=== PATIENT | female | born 2000 | race Caucasian/White ===

== ENCOUNTER 2021-08-04 06:47 | Inpatient (IN) ==
[2021-08-04] MEDS ORDERED: MEPERIDINE 50 MG/1 ML VIAL IV PRN (07:31)
[2021-08-04] MEDS ORDERED: LACTATED RINGERS 500 ML IV PRN (07:31)
[2021-08-04] MEDS ORDERED: BUTORPHANOL 2 MG/ML VIAL IV PRN (07:31)
[2021-08-04 07:54] LABS: Basophils % 0.1 % (0.0-0.8); Eosinophils # 0.1 10*3/uL (0.0-0.87); Eosinophils % 0.7 % (0.00-10.9); Hematocrit 30.8 VOL% (35.7-47.0); Hemoglobin 9.7 GM/DL (12.0-16.0); Immature Granulocytes % 0.4 %; Immature Granulocytes Absolute 0.03 #; Lymphocytes # 1.9 10*3/uL (1.4-4.0); Lymphocytes % 25.5 % (21.3-54.2); Mean Corpuscular HGB Conc 31.5 GM/DL (32-36); Mean Corpuscular Volume 82.4 FL (87-102); Mean Platelet Volume 10.4 FL (9.6-12.0); Monocytes % 10.7 % (1.7-12.7); Neutrophils % 62.6 % (38.7-73.9); Platelet Count 232 T/CUMM (130-400); Red Blood Count 3.74 MC/CUMM (3.8-5.5); Red Cell Distribution Width 15.1 % (9.3-17.3); White Blood Count 7.6 T/CUMM (4-12)
[2021-08-04] MEDS ORDERED: LACTATED RINGERS 1,000 ML IV SCH ×3 (08:00→14:00)
[2021-08-04 08:26] LABS: Albumin 2.5 G/DL (3.4-5.0); Bilirubin,Total 0.4 MG/DL (0.20-1.00); Calcium 8.9 MG/DL (8.5-10.1); Osmolality,Calculated 271.7 MOS/KG (273-304); Potassium 3.4 MMOL/L (3.5-5.1); Total Protein 6.6 G/DL (6.4-8.2)
[2021-08-04] MEDS ORDERED: FAMOTIDINE 20 MG/2 ML VIAL IV ONE (13:30)
[2021-08-04] MEDS ORDERED: ePHEDrine 50 MG/ML VIAL IV PRN (13:30)
[2021-08-04] MEDS ORDERED: diphenhydrAMINE 50 MG/1 ML VIAL IV PRN ×2 (13:30)
[2021-08-04] MEDS ORDERED: NALOXONE 0.4 MG/ML VIAL IV PRN (13:30)
[2021-08-04] MEDS ORDERED: CITRIC ACID/SODIUM CITRATE 30 ML UDCUP PO ONE (13:30)
[2021-08-04] MEDS ORDERED: LACTATED RINGERS 1,000 ML IV ONE (14:00)
[2021-08-04] MEDS ORDERED: PROMETHAZINE 25 MG/1 ML VIAL IM ONE (14:00)
[2021-08-04] MEDS: fentaNYL 2 MCG/ROPIV 0.2% EPID 100 ML EPIDURAL SCH ×2 (15:10→22:15)
[2021-08-04] MEDS: OXYTOCIN/LR 20 UNIT/1,000 ML BAG IV SCH (15:15)
[2021-08-04] MEDS: ONDANSETRON 4 MG/2 ML VIAL IV PRN ×2 (15:30→20:30)
[2021-08-04 16:59] LABS: Mucus,Urine Occasional /LPF (Occasional); RBC,Urine 104 /HPF (0-4); Squamous Epithelial Cell,Urine Occasional /HPF (0-10)
[2021-08-04 17:00] LABS: Glucose,Urine (UA) Negative (Negative); Ketones,Urine 80 mg/dL (Negative); Protein,Urine Negative (Negative); Urine Appearance Clear (Clear); Urine Color Yellow (Yellow)
[2021-08-04 17:01] LABS: Bilirubin,Urine Negative (Negative); Blood, Urine Large mg/dL (Negative); Nitrite,Urine Negative (Negative)
[2021-08-04] MEDS ORDERED: miSOPROStoL 200 MCG TABLET ONE (23:04)
[2021-08-04] MEDS ORDERED: TRANEXAMIC ACID 1,000 MG/10 ML VIAL ONE (23:04)
[2021-08-04] MEDS ORDERED: CARBOPROST TROMETHAMINE 250 MCG/ML AMP IM ONE (23:05)
[2021-08-04] MEDS ORDERED: METHYLERGONOVINE 0.2 MG/1 ML AMP ONE (23:05)
[2021-08-04] MEDS ORDERED: SODIUM CHLORIDE 0.9% 0 ML IV ONE (23:05)
[2021-08-04] MEDS ORDERED: OXYTOCIN/LR 20 UNIT/1,000 ML BAG IV ONE (23:05)
[2021-08-05 00:14] LABS: Cord Venous Blood HCO3 20.3 MMOL/L; Cord Venous Blood PO2 21.2 MMHG
[2021-08-05] MEDS: OXYTOCIN/LR 20 UNIT/1,000 ML BAG IV SCH (00:57)
[2021-08-05] MEDS ORDERED: IBUPROFEN 800 MG TABLET PO PRN (03:27)
[2021-08-05] MEDS ORDERED: oxyCODONE/ACETAMINOPHEN 5-325 MG TABLET PO PRN (03:28)
[2021-08-05] MEDS ORDERED: BENZOCAINE 20%/MENTHOL 0.5% SPRAY 56 GM CAN TOP PRN (05:30)
[2021-08-05] MEDS: oxyCODONE/ACETAMINOPHEN 5-325 MG TABLET PO PRN (06:16)
[2021-08-05 08:25] LABS: Basophils % 0.2 % (0.0-0.8); Eosinophils % 0.1 % (0.00-10.9); Hematocrit 30.3 VOL% (35.7-47.0); Hemoglobin 9.7 GM/DL (12.0-16.0); Immature Granulocytes % 0.4 %; Immature Granulocytes Absolute 0.06 #; Lymphocytes % 7.3 % (21.3-54.2); Mean Corpuscular Volume 81.2 FL (87-102); Mean Platelet Volume 10.4 FL (9.6-12.0); Monocytes % 6.6 % (1.7-12.7); Neutrophils % 85.4 % (38.7-73.9); Platelet Count 249 T/CUMM (130-400); Red Blood Count 3.73 MC/CUMM (3.8-5.5); Red Cell Distribution Width 14.9 % (9.3-17.3); White Blood Count 14.1 T/CUMM (4-12)
[2021-08-05] MEDS: DOCUSATE SODIUM 100 MG CAPSULE PO PRN ×2 (09:28→21:00)
[2021-08-05] MEDS: IBUPROFEN 800 MG TABLET PO PRN ×2 (10:41→17:27)
[2021-08-05] MEDS ORDERED: WITCH HAZEL PADS 100/JAR TOP PRN (12:33)
[2021-08-05] MEDS ORDERED: HYDROCORTISONE 2.5% RECTAL CREAM 30 GM TUBE TOP PRN (12:34)
[2021-08-05] MEDS ORDERED: POTASSIUM CHLORIDE 20 MEQ TABLET PO ONE (20:46)
[2021-08-06] MEDS: oxyCODONE/ACETAMINOPHEN 5-325 MG TABLET PO PRN (07:08)
[2021-08-06] MEDS ORDERED: ONDANSETRON 4 MG TABLET PO PRN (09:45)
[2021-08-06 12:39] VITALS: BP 123/85
== END 2021-08-06 12:15 | disposition home or self-care (01) | DRG 768 ==
LOC: N.LD 06:47 → N.OB 08-05 02:55
PROVIDERS: ADMIT Obstetrics & Gynecology; ATTEND Obstetrics & Gynecology